=== PATIENT | male | born 1995 | race African-American/Black ===

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

== ENCOUNTER 2017-12-25 07:53 | Emergency (ER) | payer SELFPAY ==
[~2017-12-25] VITALS: Ht 188 cm; Wt 91.6 kg
[~2017-12-25 07:53] MED LIST: PRED50TA PO
--- NOTE | 2017-12-25 07:57 | PHYS DOC ---
Past Medical History Past Medical History: No Pertinent History Past Surgical History: No Surgical History Alcohol Use: None Drug Use: None Adult General Chief Complaint Chief Complaint: SEXUALLY TRANSMITTED DISEASE HPI HPI Patient is a 22 year old male who presents with STD exposure. Patient states his sexual partner was diagnosed with gonorrhea and chlamydia this week. He does endorse some minor urethral discharge but no testicular pain. No abdominal pain. No fever or chills. He is otherwise healthy and no additional complaints today. Review of Systems Review of Systems Constitutional: Denies fever HENT: Denies nasal congestion Respiratory: Denies cough or shortness of breath Cardiovascular: No additional information not addressed in HPI GI: Denies abdominal pain, nausea, vomiting : Denies dysuria or hematuria Musculoskeletal: Denies back pain or joint pain Integument: Denies rash or skin lesions All other systems were reviewed and found to be within normal limits, except as documented in this note. Allergies Allergies Allergies Coded Allergies Type Severity Reaction Last Updated Verified No Known Drug Allergies 10/14/16 No Physical Exam Physical Exam Constitutional: Well developed, well nourished, no acute distress, non-toxic appearance HENT: Normocephalic, atraumatic, bilateral external ears normal, oropharynx moist Eyes: PERRLA, EOMI, conjunctiva normal Neck: Normal range of motion, no tenderness Lungs & Thorax: Bilateral breath sounds clear Abdomen: Bowel sounds normal, soft, no tenderness Skin: Warm, dry, no erythema, no rash. Neurologic: Alert and oriented X 3 Psychologic: Affect normal EKG EKG [] Radiology/Procedures Radiology/Procedures [] Course & Med Decision Making Course & Med Decision Making Pertinent Labs and Imaging studies reviewed. (See chart for details) Is evaluated in the emergency department for simple STD exposure. In the ER, he is given Rocephin, Flagyl, and azithromycin. He is discharged home with specific STD precautions. Patient is advised to follow-up in the health Department if he has concerns about additional STDs or return to the ER. Dragon Disclaimer Dragon Disclaimer This electronic medical record was generated, in whole or in part, using a voice recognition dictation system. Departure Departure Referrals: NO PCP (PCP) KAUSHAL GARZA DO Dec 25, 2017 07:57
[2017-12-25 08:01] VITALS: BP 150/78
[2017-12-25] MEDS ORDERED: cefTRIAXone IM 250 MG VIAL IM ONE (08:15)
[2017-12-25] MEDS ORDERED: AZITHROMYCIN 250 MG TABLET. PO ONE (08:15)
[2017-12-25] MEDS ORDERED: metroNIDAZOLE 500 MG TABLET PO ONE (08:15)
== END 2017-12-25 08:35 | disposition home or self-care (01) ==
LOC: ER 07:53
DX: Z11.3 Encounter for screening for infections with a predominantly sexual mode of transmission (principal)
CPT/HCPCS: 96372; 99283; J0696; Q0144